=== PATIENT | female | born 1990 | race Caucasian/White ===

== ENCOUNTER 2018-05-11 04:44 | Emergency (ER) | payer OTHER, MEDICAID, SELFPAY ==
[2018-05-11 04:52] VITALS: BP 135/87; PULSE 138; RESP 18; TEMP 36.6; O2SAT 98; BMI 23.6
--- NOTE | 2018-05-11 05:04 | ED.NAVMDI ---
HPI - Nausea/Vomiting/Diarrhea General Chief complaint: Nausea/Vomiting/Diarrhea Stated complaint: vomiting and diarrhea since thurs Time Seen by Provider: 05/11/18 04:45 Source: patient and family Mode of arrival: ambulatory Limitations: no limitations History of Present Illness HPI Narrative: 27-year-old nonsmoking female presents with family in the chief complaint of a few days of persistent nausea, vomiting and diarrhea. She has multiple episodes daily and has become a bit dizzy, weak and lightheaded. She denies fever or chills. She denies exposure to ill persons. She denies any recent international travel, use of antibiotics, or exposure to obviously bad food. She denies any blood in her stool or emesis. She states both are pretty much water at this point. MD complaint: nausea, vomiting and diarrhea Onset (ago): day(s) Description of Vomiting: watery Description of Diarrhea: watery Associated Abdominal Pain: Yes Location of pain: diffuse Radiation: diffuse Severity: mild Quality: cramping Relieving factors: none Exacerbating factors: none Related Data Previous Rx's Medication Instructions Recorded methylphenidate HCl 5 mg PO BID #60 tab 07/01/16 norethindrone-e.estradiol-iron 1 tab PO Q DAY #3 pac 10/22/16 [Microgestin FE 05/31 (28)] ondansetron 4 mg PO TID-QID PRN #10 tab 05/11/18 Allergies Allergy/AdvReac Type Severity Reaction Status Date / Time No Known Drug Allergies Allergy Verified 05/11/18 04:55 Review of Systems Review of Systems All systems reviewed & are unremarkable except as noted in HPI and below Constitutional Denies chills, Denies fever(s), Denies lethargy and Reports weakness Eyes Denies change in vision, Denies eye discharge, Denies irritation and Denies loss of vision ENT Ears, Nose, Mouth, and Throat: Denies change in voice, Denies neck pain and Denies sore throat Cardiovascular Denies chest pain, Denies irregular heart rhythm, Denies lightheadedness, Denies palpitations, Denies dyspnea, Denies dyspnea on exertion and Denies orthopnea Respiratory Denies cough, Denies dyspnea, Denies dyspnea on exertion and Denies wheezing Gastrointestinal Gastrointestinal: Reports abdominal pain, Reports bloating, Reports change in bowel habits, Reports diarrhea, Reports nausea and Reports vomiting Genitourinary Denies hematuria, Denies flank pain, Denies urinary incontinence and Denies urinary urgency Musculoskeletal Denies neck pain Integumentary/Breasts Denies pruritus, Denies erythema, Denies rash and Denies wounds Neurologic Denies confusion, Denies loss of vision and Reports weakness Psychiatric Denies anxiety, Denies confusion, Denies depression, Denies homicidal ideation and Denies suicidal ideation Endocrine Denies palpitations Hematologic/Lymphatic Denies easy bruising Allergic/Immunologic Denies wheezing PFSH Family History Grandfather CAD (coronary artery disease) Grandmother Breast cancer Thyroid cancer Mother Hypothyroid Social History Smoking Status: Never smoker Exam Narrative Exam Narrative: 27-year-old female obviously not feeling well, but in good spirits GENERAL: This is a well-nourished, well-developed patient, in mild distress. HEAD: Atraumatic. Normocephalic. No temporal or scalp tenderness. EYES: Pupils equal round and reactive. Extraocular motions intact. No scleral icterus. No injection or drainage. ENT: Nose without bleeding, purulent drainage or septal hematoma. Throat without erythema, tonsillar hypertrophy or exudate. Uvula midline. Airway patent. NECK: Trachea midline. No JVD or lymphadenopathy. Supple, nontender, no meningeal signs. CARDIOVASCULAR: Tachycardic rate and rhythm without murmurs, gallops, or rubs. RESPIRATORY: Clear to auscultation. Breath sounds equal bilaterally. No wheezes, rales, or rhonchi. GASTROINTESTINAL: Abdomen soft, mild tenderness, nondistended. No hepato-splenomegaly, or palpable masses. No guarding. Increased bowel sounds EXTREMITIES: No clubbing, cyanosis, or edema. No joint tenderness, effusion, or edema noted. BACK: Nontender without deformity or crepitance. No flank tenderness. NEURO: AOx3. SKIN: No rash or erythema. Initial Vital Signs Initial Vital Signs: Vital Signs Temperature 97.8 F 05/11/18 04:52 Pulse Rate 138 H 05/11/18 04:52 Respiratory Rate 18 05/11/18 04:52 Blood Pressure 135/87 05/11/18 04:52 Pulse Oximetry 98 05/11/18 04:52 Course Orders Ordered: ED Orders 05/11/18 05:02 Complete Blood Count AUTO DIFF Stat Comprehensive Metabolic Panel Stat 05/11/18 05:14 GI Panel Stat Sodium Chloride (Normal Saline 0.9%) 1,000 mls @ 500 mls/hr IV BOLUS ONE Stop: 05/11/18 08:07 Last Infusion: 05/11/18 06:51 Dose: 0 mls/hr Admin: 05/11/18 06:12 Dose: 500 mls/hr Discontinued Medications Sodium Chloride (Normal Saline 0.9%) 1,000 mls @ 1,000 mls/hr IV BOLUS ONE Stop: 05/11/18 06:01 Last Infusion: 05/11/18 06:07 Dose: 0 mls/hr Admin: 05/11/18 05:09 Dose: 1,000 mls/hr Ondansetron HCl (Zofran) 4 mg IV NOW ONE Stop: 05/11/18 05:03 Last Admin: 05/11/18 05:09 Dose: 4 mg Pantoprazole Sodium (Protonix) 40 mg IV NOW ONE Stop: 05/11/18 06:50 Last Admin: 05/11/18 06:53 Dose: 40 mg Vital Signs - 8 hr 05/11/18 04:52 05/11/18 05:30 05/11/18 05:52 Temperature 97.8 F Pulse Rate 138 H 92 H 93 H Respiratory Rate 18 16 16 Blood Pressure 135/87 Blood Pressure [Right Arm] 96/82 109/63 Pulse Oximetry 98 100 99 05/11/18 06:50 Temperature Pulse Rate 74 Respiratory Rate 18 Blood Pressure Blood Pressure [Right Arm] 103/54 L Pulse Oximetry 100 MDM - Nausea/Vomiting/Diarrhea Lab Data Result diagrams: 05/11/18 05:02 05/11/18 05:02 Lab Results 05/11/18 05/11/18 05/11/18 Range/Units 05:02 05:02 05:14 WBC 9.1 (4.5-11.0) X10^3/uL RBC 5.12 (4.0-5.2) X10^6/uL Hgb 14.5 (12.0-16.0) g/dL Hct 43.4 (36-46) % MCV 84.8 (80-100) fL MCH 28.3 (26-34) PG MCHC 33.4 (30-36) % RDW 12.9 (11.6-14.8) % Plt Count 335 (150-400) X10^3/uL Neut % (Auto) 63.5 (50-75) % Lymph % (Auto) 26.4 (25-40) % [place] % (Auto) 6.6 (3-14) % Eos % (Auto) 2.7 (2-4) % Baso % (Auto) 0.8 (0-2) % Neut # (Auto) 5800 (9140-8216) /uL Sodium 142 (137-145) mmol/L Potassium 3.9 (3.4-5.1) mmol/L Chloride 105 (98-107) mmol/L Carbon Dioxide 23 (22-32) mmol/L BUN 20 H (7-17) mg/dL Creatinine 0.70 (0.52-1.04) mg/dL Estimated GFR > 60.0 (>60) mL/min BUN/Creatinine Ratio 28.6 H (6-22) Glucose 127 H (70-100) mg/dL Calcium 9.8 (8.4-10.2) mg/dL Total Bilirubin 0.4 (0.2-1.3) mg/dL AST 46 H (14-36) IU/L ALT 88 H (9-52) IU/L Alkaline Phosphatase 85 (38-126) U/L Total Protein 8.6 H (6.3-8.2) g/dL Albumin 5.0 (3.5-5.0) g/dL Globulin 3.6 (1.7-4.1) g/dL Albumin/Globulin Ratio 1.4 (1.0-2.8) Stl C. cayetanensis PCR Not detected (Not Detect) Stool Rotavirus (PCR) Not detected (Not Detect) Stool Adenovirus (PCR) Not detected (Not Detect) Stool Astrovirus (PCR) Not detected (Not Detect) Stool Cryptosporidium PCR Not detected (Not Detect) Stl E.coli Shiga Tox PCR Not detected (Not Detect) St Sh/Enteroin Ecoli PCR Not detected (Not Detect) Stool E coli O157 PCR Not Reportable Stl Enterotoxigenic E PCR Not detected (Not Detect) Stool EPEC (PCR) Not detected (Not Detect) Stl E. histolytica PCR Not detected (Not Detect) Stool Giardia Lamblia PCR Not detected (Not Detect) Stool Sapovirus (PCR) Not detected (Not Detect) Stl P. shigelloides PCR Not detected (Not Detect) St Y.enterocolitica PCR Not detected (Not Detect) Stool Vibrio (PCR) Not detected (Not Detect) Stl Vibrio cholerae PCR Not detected (Not Detect) Stl Enteroaggr Ecoli PCR Not detected (Not Detect) Stl Norovirus GI/GII PCR Not detected (Not Detect) Campylobacter (PCR) Not detected (Not Detect) C. difficile Tox (PCR) Not detected (Not Detect) Salmonella (PCR) Not detected (Not Detect) MDM Narrative Medical decision making narrative: patient feeling better, vitals have improved. Labs unremarkable. GI panel doesn't find any organisms requiring specific treatment Discharge Plan Departure Patient Disposition: Home Clinical Impression: Gastroenteritis, Dehydration Instructions: DI for Dehydration -- Adult, Gastroenteritis Diet Activity Restrictions/Additional Instructions: 1. Drink plenty of fluids with frequent small sips. 2. For the next 24 hours a clear liquid diet is advised. After that please employ a brat diet which would include bananas, rice, apples, toast. 3. Please take medications as directed. 4. Please follow-up with your doctor in the next 1-2 days. Call the office for an appointment. 5. Please return to the emergency Department for any worsening or persistent symptoms, such as increasing pain or fever. Prescriptions: New ondansetron 4 mg tablet,disintegrating 4 mg PO TID-QID PRN (Reason: nausea and vomiting) Qty: 10 RF: 0 No Action methylphenidate HCl 5 MG tablet 5 mg PO BID Qty: 60 RF: 0 norethindrone-e.estradiol-iron [Microgestin FE 05/31 (28)] 1 MG/20 MCG tablet 1 tab PO Q DAY Qty: 3 RF: 0
[2018-05-11] MEDS: ONDANSETRON 4 MG/2 ML INJ IV (05:09)
[2018-05-11] MEDS: SODIUM CHLORIDE 0.9% 1,000 ML 1000 ML IV (05:09)
[2018-05-11 05:10] LABS: Add Manual Diff / Slide Review NO; Basophils Percent Auto 0.8 % (0-2); Eosinophils Percent Auto 2.7 % (2-4); Hematocrit 43.4 % (36-46); Hemoglobin 14.5 g/dL (12.0-16.0); Lymphocytes Percent Auto 26.4 % (25-40); Mean Corpuscular HGB Conc 33.4 % (30-36); Mean Corpuscular Hemoglobin 28.3 PG (26-34); Mean Corpuscular Volume 84.8 fL (80-100); Monocytes Percent Auto 6.6 % (3-14); Neutrophils Absolute Auto 5800 /uL (1500-7000); Neutrophils Percent Auto 63.5 % (50-75); Platelet Count 335 X10^3/uL (150-400); Red Blood Cell Count 5.12 X10^6/uL (4.0-5.2); Red Cell Distribution Width 12.9 % (11.6-14.8); White Blood Cell Count 9.1 X10^3/uL (4.5-11.0)
--- NOTE | 2018-05-11 05:20 | PC.NURSE ---
Obtained watery light brown, seedy stool and sent out to lab for testing. Pt reports unable to provide urine sample at this time.
[2018-05-11 05:23] LABS: Alanine Aminotransferase 88 IU/L (9-52); Albumin Globulin Ratio 1.4 (1.0-2.8); Alkaline Phosphatase 85 U/L (38-126); Aspartate Aminotransferase 46 IU/L (14-36); BUN Creatinine Ratio 28.6 (6-22); Bilirubin Total 0.4 mg/dL (0.2-1.3); Blood Urea Nitrogen 20 mg/dL (7-17); Calcium 9.8 mg/dL (8.4-10.2); Carbon Dioxide 23 mmol/L (22-32); Chloride 105 mmol/L (98-107); Estimated Glomerular Filt Rate > 60.0 mL/min (>60); Globulin 3.6 g/dL (1.7-4.1); Glucose 127 mg/dL (70-100); HEMOLYSIS < 15 (0-50); Potassium 3.9 mmol/L (3.4-5.1); Sodium 142 mmol/L (137-145); Total Protein 8.6 g/dL (6.3-8.2)
[2018-05-11 05:30] VITALS: BP 96/82; PULSE 92; RESP 16; O2SAT 100
[2018-05-11 05:52] VITALS: BP 109/63; PULSE 93; RESP 16; O2SAT 99
[2018-05-11] MEDS: SODIUM CHLORIDE 0.9% 1,000 ML 500 ML IV (06:12)
[2018-05-11 06:36] LABS: Adenovirus F 40/41 Not Detected (Not Detect); Astrovirus Not Detected (Not Detect); Campylobacter Not Detected (Not Detect); Clostridium difficile toxin AB Not Detected (Not Detect); Cryptosporidium Not Detected (Not Detect); Cyclospora cayetanensis Not Detected (Not Detect); Entamoeba histolytica Not Detected (Not Detect); Enteroaggregative E.coli Not Detected (Not Detect); Enteropathogenic E.coli Not Detected (Not Detect); Enterotoxigenic E.coli It/st Not Detected (Not Detect); Giardia lamblia Not Detected (Not Detect); Norovirus GI/GII Not Detected (Not Detect); Plesiomonsa shigelloides Not Detected (Not Detect); Rotavirus A Not Detected (Not Detect); Salmonella Not Detected (Not Detect); Sapovirus Not Detected (Not Detect); Shiga-like toxin-prod E.coli Not Detected (Not Detect); Shigella/Enteroinvasive E.coli Not Detected (Not Detect); Vibrio Not Detected (Not Detect); Vibrio cholerae Not Detected (Not Detect); Yersinia enterocolitica Not Detected (Not Detect)
[2018-05-11 06:50] VITALS: BP 103/54; PULSE 74; RESP 18; O2SAT 100
--- NOTE | 2018-05-11 06:51 | PC.NURSE ---
pt reports still feel nauseated, informed the MD and obtained Protonix IV medication.
[2018-05-11] MEDS: PANTOPRAZOLE 40 MG VIAL IV (06:53)
== END 2018-05-11 07:04 | disposition home or self-care (01) ==
PROVIDERS: Emergency Provider Emergency Medicine; Family Provider Family Medicine; PCP Family Medicine
DX: K52.9 Noninfective gastroenteritis and colitis, unspecified (principal); E86.0 Dehydration
CPT/HCPCS: 36591; 80053; 85025; 87507; 96361; 96374; 96375; 99284; C9113; J2405

== ENCOUNTER 2019-02-19 08:43 | Emergency (ER) | payer OTHER, MEDICAID, SELFPAY ==
[2019-02-19 08:44] VITALS: BP 141/86; PULSE 107; RESP 18; TEMP 36.7; O2SAT 100; BMI 22.8
--- NOTE | 2019-02-19 08:47 | ED.FEMALEGU ---
HPI - Female Genitourinary General Chief complaint: Urogenital-Female Stated complaint: kidney infection Time Seen by Provider: 02/19/19 08:46 Source: patient and family Mode of arrival: Ambulatory Limitations: no limitations History of Present Illness HPI Narrative: 28-year-old female nonsmoker with noncontributory medical history presents with her in the chief complaint of a few days of dysuria, frequency and urgency and now for the past day bilateral back pain. She has had pyelonephritis once before and states this feels quite similar. She denies fever chills but does admit to some nausea. Her pain is worse when she moves and improves with rest. MD Complaint: dysuria and UTI Onset (ago): day(s) Severity: moderate Quality: Aching Urinary symptoms: Dysuria and Flank Pain Patient : No Related Data Previous Rx's Medication Instructions Recorded methylphenidate HCl 5 mg PO BID #60 tab 07/01/16 norethindrone-e.estradiol-iron 1 tab PO Q DAY #3 pac 10/22/16 [Microgestin FE 05/31 (28)] cephalexin [Keflex] 500 mg PO QID 7 Days #28 cap 02/19/19 ketorolac 10 mg PO Q6H PRN #14 tab 02/19/19 ondansetron 4 mg PO TID-QID PRN #10 tab 02/19/19 Allergies Allergy/AdvReac Type Severity Reaction Status Date / Time No Known Drug Allergies Allergy Verified 05/11/18 04:55 Review of Systems Constitutional Constitutional: Denies chills, Denies fatigue, Denies fever(s), Denies frequent falls, Denies lethargy and Denies weakness Eyes Eyes: Denies change in vision, Denies eye discharge, Denies irritation and Denies loss of vision ENT Ears, Nose, Mouth, and Throat: Denies change in voice, Denies dizziness, Denies neck pain, Denies sore throat and Denies throat swelling Cardiovascular Cardiovascular: Denies chest pain, Denies irregular heart rhythm, Denies lightheadedness, Denies palpitations, Denies dyspnea, Denies dyspnea on exertion and Denies orthopnea Respiratory Respiratory: Denies cough, Denies dyspnea, Denies dyspnea on exertion and Denies wheezing Gastrointestinal Gastrointestinal: Denies abdominal pain, Denies change in bowel habits, Denies diarrhea, Denies nausea and Denies vomiting Genitourinary Genitourinary: Denies hematuria, Denies flank pain, Denies urinary incontinence and Denies urinary urgency Musculoskeletal Musculoskeletal: Reports back pain, Denies muscle weakness, Denies neck pain, Denies numbness and Denies tingling Integumentary/Breasts Skin/Breast: Denies pruritus, Denies erythema, Denies rash and Denies wounds Neurologic Neurologic: Denies behavioral changes, Denies confusion, Denies dizziness, Denies frequent falls, Denies loss of vision, Denies numbness, Denies tingling and Denies weakness Psychiatric Psychiatric: Denies anxiety, Denies behavioral changes, Denies confusion, Denies depression, Denies homicidal ideation and Denies suicidal ideation Endocrine Endocrine: Denies fatigue, Denies flushing and Denies palpitations Hematologic/Lymphatic Hematologic/Lymphatic: Denies easy bruising Allergic/Immunologic Allergic/Immunologic: Denies urticaria, Denies throat swelling and Denies wheezing Exam Narrative Exam Narrative: GENERAL: [28] year old patient appears stated age. Well-nourished, well-developed patient, in mild distress. HEAD: Atraumatic. Normocephalic. EYES: Pupils equal round and reactive. Extraocular motions intact. No scleral icterus. No injection or drainage. ENT: Nose without bleeding, purulent drainage. Throat without erythema, tonsillar hypertrophy or exudate. Airway patent. NECK: Trachea midline. Non tender CARDIOVASCULAR: Regular rate and rhythm without murmurs, gallops, or rubs. RESPIRATORY: Clear to auscultation. Breath sounds equal bilaterally. No wheezes, rales, or rhonchi. GASTROINTESTINAL: Abdomen soft, non-tender, nondistended. EXTREMITIES: No edema or joint tenderness. BACK: Nontender without deformity or crepitance. Bilateral CVA tenderness NEURO: AOx3. SKIN: No rash or erythema of visible areas Initial Vital Signs Initial Vital Signs: Vital Signs Temperature 98.1 F 02/19/19 08:44 Pulse Rate 107 H 02/19/19 08:44 Respiratory Rate 18 02/19/19 08:44 Blood Pressure 141/86 H 02/19/19 08:44 Pulse Oximetry 100 02/19/19 08:44 Course Orders Ordered: Discontinued Medications Sodium Chloride (Normal Saline 0.9%) 1,000 mls @ 1,000 mls/hr IV BOLUS ONE Stop: 02/19/19 09:51 Last Infusion: 02/19/19 11:07 Dose: 0 mls/hr Documented by: Admin: 02/19/19 09:36 Dose: 1,000 mls/hr Documented by: YUSRA Ketorolac Tromethamine (Toradol) 15 mg IV NOW ONE Stop: 02/19/19 09:41 Last Admin: 02/19/19 09:43 Dose: 15 mg Documented by: YUSRA Ondansetron HCl (Zofran) 4 mg IV NOW ONE Stop: 02/19/19 10:07 Last Admin: 02/19/19 10:09 Dose: 4 mg Documented by: YUSRA MDM - Female Genitourinary Lab Data Result diagrams: 02/19/19 09:18 02/19/19 09:18 Labs: Lab Results 02/19/19 02/19/19 02/19/19 Range/Units 09:18 09:18 09:18 WBC 5.7 (4.5-11.0) X10^3/uL RBC 4.67 (4.0-5.2) X10^6/uL Hgb 13.3 (12.0-16.0) g/dL Hct 39.2 (36-46) % MCV 84.0 (80-100) fL MCH 28.5 (26-34) PG MCHC 34.0 (30-36) % RDW 12.4 (11.6-14.8) % Plt Count 221 (150-400) X10^3/uL Neut % (Auto) 86.2 H (50-75) % Lymph % (Auto) 6.8 L (25-40) % [place] % (Auto) 6.4 (3-14) % Eos % (Auto) 0.4 L (2-4) % Baso % (Auto) 0.2 (0-2) % Neut # (Auto) 4900 (8357-3384) /uL Lymph # (Auto) 400 L (6225-8329) /uL [place] # (Auto) 400 (0-900) /uL Eos # (Auto) 0 (0-450) /uL Baso # (Auto) 0 (0-100) /uL Sodium 138 (137-145) mmol/L Potassium 3.7 (3.4-5.1) mmol/L Chloride 100 (98-107) mmol/L Carbon Dioxide 26 (22-32) mmol/L BUN 12 (7-17) mg/dL Creatinine 0.60 (0.52-1.04) mg/dL Estimated GFR > 60.0 (>60) mL/min BUN/Creatinine Ratio 20.0 (6-22) Glucose 107 H (70-100) mg/dL Lactate (0.7-2.1) mmol/L Calcium 9.5 (8.4-10.2) mg/dL Procalcitonin 0.09 (<0.5) ng/mL Urine Ictotest (Negative) Urine RBC (0-5/HPF) Urine WBC (0-5/HPF) Urine Bacteria (None) Urine Mucus (Negative) Ur Culture Indicated? 02/19/19 02/19/19 Range/Units 09:18 09:18 WBC (4.5-11.0) X10^3/uL RBC (4.0-5.2) X10^6/uL Hgb (12.0-16.0) g/dL Hct (36-46) % MCV (80-100) fL MCH (26-34) PG MCHC (30-36) % RDW (11.6-14.8) % Plt Count (150-400) X10^3/uL Neut % (Auto) (50-75) % Lymph % (Auto) (25-40) % [place] % (Auto) (3-14) % Eos % (Auto) (2-4) % Baso % (Auto) (0-2) % Neut # (Auto) (1093-5507) /uL Lymph # (Auto) (6578-8501) /uL [place] # (Auto) (0-900) /uL Eos # (Auto) (0-450) /uL Baso # (Auto) (0-100) /uL Sodium (137-145) mmol/L Potassium (3.4-5.1) mmol/L Chloride (98-107) mmol/L Carbon Dioxide (22-32) mmol/L BUN (7-17) mg/dL Creatinine (0.52-1.04) mg/dL Estimated GFR (>60) mL/min BUN/Creatinine Ratio (6-22) Glucose (70-100) mg/dL Lactate 0.9 (0.7-2.1) mmol/L Calcium (8.4-10.2) mg/dL Procalcitonin (<0.5) ng/mL Urine Ictotest Negative (Negative) Urine RBC 0-1/hpf (0-5/HPF) Urine WBC 1-5/hpf (0-5/HPF) Urine Bacteria Few (2-10) H (None) Urine Mucus 2+ H (Negative) Ur Culture Indicated? Specimen cultured Point of Care Testing Test Results Negative Urine Dip Bedside Urine Glucose Negative Bedside Urine Bilirubin + 1 Bedside Urine Ketone - Negative Urine Specific [place] 1.015 Bedside Urine Occult Blood +/- Bedside Urine pH 7.5 Bedside Urine Urobilinogen 1+ 2mg Bedside Urine Nitrite - Negative Bedside Urine Leukocytes + 70 Esterase Discharge Plan Departure Patient Disposition: Home Clinical Impression: Pyelonephritis Discharge Date/Time: 02/19/19 11:09 Instructions: Kidney Infection Activity Restrictions/Additional Instructions: *You have been diagnosed with [acute pyelonephritis] *What to do: *Take medications as directed *Follow up with your primary care provider in 2-3 days, call for an appointment. Let them know you were seen in the Emergency Department and that we ask that you be seen in follow up *Return to ER if you should have any new, worsening or concerning symptoms, such as [worsening pain, persistent vomiting, fever over 101 F, or other bothersome symptoms] Prescriptions: New ketorolac 10 mg tablet 10 mg PO Q6H PRN (Reason: pain) Qty: 14 RF: 0 cephalexin [Keflex] 500 mg capsule 500 mg PO QID 7 Days Qty: 28 RF: 0 ondansetron 4 mg tablet,disintegrating 4 mg PO TID-QID PRN (Reason: nausea and vomiting) Qty: 10 RF: 0 No Action methylphenidate HCl 5 MG tablet 5 mg PO BID Qty: 60 RF: 0 norethindrone-e.estradiol-iron [Microgestin FE 05/31 ()] 1 MG/20 MCG tablet 1 tab PO Q DAY Qty: 3 RF: 0 Referrals: Caren Small DO [Primary Care Provider] -
[2019-02-19 09:29] LABS: Add Manual Diff / Slide Review NO; Basophils Absolute Auto 0 /uL (0-100); Basophils Percent Auto 0.2 % (0-2); Eosinophils Absolute Auto 0 /uL (0-450); Eosinophils Percent Auto 0.4 % (2-4); Hematocrit 39.2 % (36-46); Hemoglobin 13.3 g/dL (12.0-16.0); Lymphocytes Absolute Auto 400 /uL (1100-4500); Lymphocytes Percent Auto 6.8 % (25-40); Mean Corpuscular Hemoglobin 28.5 PG (26-34); Monocytes Absolute Auto 400 /uL (0-900); Monocytes Percent Auto 6.4 % (3-14); Neutrophils Absolute Auto 4900 /uL (1500-7000); Neutrophils Percent Auto 86.2 % (50-75); Platelet Count 221 X10^3/uL (150-400); Red Blood Cell Count 4.67 X10^6/uL (4.0-5.2); Red Cell Distribution Width 12.4 % (11.6-14.8); White Blood Cell Count 5.7 X10^3/uL (4.5-11.0)
[2019-02-19] MEDS: SODIUM CHLORIDE 0.9% 1,000 ML 1000 ML IV (09:36)
[2019-02-19 09:41] VITALS: BP 130/73; PULSE 95; RESP 12; O2SAT 100
[2019-02-19 09:43] LABS: Blood Urea Nitrogen 12 mg/dL (7-17); Calcium 9.5 mg/dL (8.4-10.2); Carbon Dioxide 26 mmol/L (22-32); Chloride 100 mmol/L (98-107); Estimated Glomerular Filt Rate > 60.0 mL/min (>60); Glucose 107 mg/dL (70-100); HEMOLYSIS < 15 (0-50); Lactate (Lactic Acid) 0.9 mmol/L (0.7-2.1); Potassium 3.7 mmol/L (3.4-5.1); Sodium 138 mmol/L (137-145)
[2019-02-19] MEDS: KETOROLAC 60 MG/2 ML VIAL 15 MG IV (09:43)
[2019-02-19 09:55] LABS: Bacteria Urine Few (2-10); Ictotest Urine Negative (Negative); Mucus Urine 2+ (Negative); RBC Urine 0-1/HPF (0-5/HPF); WBC Urine 1-5/HPF (0-5/HPF)
[2019-02-19 09:56] LABS: Culture Indicated Urine Specimen Cultured
[2019-02-19 10:02] LABS: Procalcitonin 0.09 ng/mL (<0.5)
[2019-02-19 10:04] VITALS: BP 133/81; PULSE 95; O2SAT 100
[2019-02-19] MEDS: ONDANSETRON 4 MG/2 ML INJ IV (10:09)
[2019-02-19 11:09] VITALS: BP 119/65; PULSE 88; RESP 18; TEMP 37; O2SAT 99
== END 2019-02-19 11:09 | disposition home or self-care (01) ==
PROVIDERS: Emergency Provider Emergency Medicine; PCP Family Medicine
DX: N12 Tubulo-interstitial nephritis, not specified as acute or chronic (principal)
CPT/HCPCS: 36415; 80048; 81003; 81015; 81025; 83605; 84145; 85025; 87040; 87086; 96361; 96374; 96375; 99283; 99284; J1885; J2405